=== PATIENT | female | born 1960 | race Caucasian/White ===

== ENCOUNTER 2016-11-12 08:20 | Day surgery (SDC) | payer OTHER ==
[~2016-11-12] VITALS: Ht 165.1 cm; Wt 63.5 kg
[~2016-11-12 08:20] MED LIST: 0.9% Sodium Chloride 1,000 ML IV SCH; ALBU8.5H2 INHALATION; CHOL200047 PO; CYA1000I IM; FLUO15CR33 TOPICAL; FLUT12AE10 IH; OMEG10005 PO; Sodium Chloride LOK Flush 10 mL Syringe IV PRN; VITA400C64 PO; fentaNYL-PF 50 mCg/mL 2 mL Inj IVPUSH PRN
[2016-11-12 08:56] VITALS: BP 122/74; PULSE 57; RESP 14; O2SAT 97
[2016-11-12 10:17] VITALS: BP 110/70; PULSE 70; RESP 16; O2SAT 100
[2016-11-12 10:20] VITALS: BP 166/61; PULSE 74; RESP 16; O2SAT 100
[2016-11-12 10:30] VITALS: BP 114/63; PULSE 61; RESP 16; O2SAT 100
[2016-11-12 10:44] VITALS: BP 111/68; PULSE 66; RESP 16; O2SAT 100
--- NOTE | 2016-11-13 11:42 | ENDO ---
[address] [address] ENDOSCOPY PROCEDURE PATIENT: NADNIE MARES : 1960 MR#: [id number] ADMIT: 11/12/2016 JOB ID: [id number] DATE: 11/12/2016 PROCEDURE: Colonoscopy. INDICATION FOR COLONOSCOPY: Patient with personal history of colon polyps. The patient's ASA classification is 1. Mallampati score was 1. MEDICATIONS: 1. Versed 5 mg. 2. Fentanyl 75 mcg. INSTRUMENT USED: PCF H 180 AL. PREPARATION QUALITY: Was fair. PROCEDURE DETAILS: After informed consent was obtained, the patient was brought into the GI suite, where she was placed on oxygen via nasal cannula and monitored with continuous pulse oximeter, telemetry and blood pressure monitoring. A time-out was performed. Then, she was placed in the left lateral decubitus position and medications were administered for sedation. Digital rectal examination was performed which was unremarkable. The colonoscope was then inserted into the rectum and advanced under direct visualization to the cecum, which was identified by the presence of the ileocecal valve and appendiceal orifice. Once the cecum was reached, the colonoscope was withdrawn back into the rectum as the mucosa and lumen were examined. In the rectum, retroflexion was performed. Following retroflexion, remaining air in the rectum was suctioned, and the procedure was completed. FINDINGS: 1. In the ascending colon, there was an approximately 3-4 mm sessile polyp that was removed with a cold snare. 2. Retroflexed views in the rectum revealed [id number] sized internal hemorrhoids. IMPRESSION: 1. Ascending colon polyp. 2. Internal hemorrhoids. RECOMMENDATIONS: Repeat colonoscopy in five years, sooner if symptoms should dictate. COMPLICATIONS: None. BLOOD LOSS: Less than 5 mL.
--- NOTE | 2016-11-13 13:02 | PATH ---
SURGICAL PATHOLOGY Attending Physician:Sandro Us CASE STATUS: Signed Out PATIENT NAME: NADINE MARES PID: [id number] : 1960 DATE COLLECTED:11/12/2016 16:48 SPECIMEN: Colon, Biopsy CLINICAL HISTORY: 1). ASCENDING COLON POLYP X1 FINAL DIAGNOSIS: Ascending Colon Polyp, Biopsy: Sessile serrated adenoma. ICD10: K63.5 GROSS DESCRIPTION: The specimen is received in one formalin filled container labeled with the patient's name, sublabeled "ascending colon polyp" and consists of 2 portions of tissue which aggregate to 0.2 x 0.2 x 0.1 CM. The specimen is entirely submitted in one cassette. 11/12/2016 [facility] ICD-9 CODES: CPT CODES: 1: 51175 Electronically Signed Out Ricarda Jolley MD [facility] Pathology [facility], [place] [address] Technical component performed at [facility], [facility] [address], [place], [address]
== END 2016-11-12 23:59 | disposition home or self-care (01) ==
LOC: END 08:20
PROVIDERS: ATTEND Internal Medicine Gastroenterology
DX: Z12.11 Encounter for screening for malignant neoplasm of colon (principal); D12.2 Benign neoplasm of ascending colon; Z86.010 Personal history of colon polyps; J45.20 Mild intermittent asthma, uncomplicated; K64.8 Other hemorrhoids
CPT/HCPCS: 45385; 99153; G0500; J2250; J3010; J7030